=== PATIENT | female | born 2000 | race Caucasian/White ===

== ENCOUNTER 2018-05-06 19:38 | Emergency (ER) | payer OTHER ==
[2018-05-06 19:53] VITALS: BP 120/73
--- NOTE | 2018-05-06 20:09 | UC ---
Cardiac HPI - HPI Summary HPI Summary: The patient is a 17-year-old female with a three-day history of mild left superior chest pain. She denies any shortness of breath. She denies any positional component to her pain. She denies any pleuritic component to her pain. States that during the month of March she was sick with a respiratory issue that took about 4 weeks to clear up. She was on courses of antibiotics as well as some prednisone. He states the prednisone and gave her palpitations so she stopped up. Today she developed a sensation that her heart was racing and pounding stronger than normal. That prompted her to come in and get checked. - History of Current Complaint Chief Complaint: UCChestPain Stated Complaint: CHEST PAIN Time Seen by Provider: 05/06/18 20:03 Hx Obtained From: Patient Hx Last Menstrual Period: 1 week ago Onset/Duration: Gradual Onset, Lasting Days Initial Severity: Mild Current Severity: Mild Pain Intensity: 3 Chest Pain Location: Discrete at: Character: Fast, Pounding Aggravating Factor(s): Nothing Alleviating Factor(s): Nothing Associated Signs & Symptoms: Positive: Chest Pain, Palpitations - Allergy/Home Medications Allergies/Adverse Reactions: Allergies Allergy/AdvReac Type Severity Reaction Status Date / Time No Known Allergies Allergy Verified 05/06/18 19:54 Home Medications: Home Medications Cholecalciferol TAB* [Vitamin D TAB*] 1 tab PO DAILY 05/06/18 [History Confirmed 05/06/18] PMH/Surg Hx/FS Hx/Imm Hx Previously Healthy: Yes - Surgical History Surgical History: None - Family History Known Family History: Negative: Cardiac Disease, Hypertension, Diabetes - Social History Alcohol Use: Rare Substance Use Type: None Smoking Status (MU): Never Smoked Tobacco Review of Systems All Other Systems Reviewed And Are Negative: Yes Constitutional: Positive: Negative Skin: Positive: Negative Eyes: Positive: Negative ENT: Positive: Negative Respiratory: Positive: Negative Cardiovascular: Positive: Palpitations, Chest Pain Gastrointestinal: Positive: Negative Genitourinary: Positive: Negative Motor: Positive: Negative Neurovascular: Positive: Negative Musculoskeletal: Positive: Negative Neurological: Positive: Negative Psychological: Positive: Negative Physical Exam Triage Information Reviewed: Yes Appearance: Well-Appearing, No Pain Distress, Well-Nourished Vital Signs: Initial Vital Signs Temp 99.7 F 05/06/18 19:42 Pulse 89 05/06/18 19:42 Resp 16 05/06/18 19:42 BP 120/73 05/06/18 19:42 Pulse Ox 99 05/06/18 19:42 Vital Signs Reviewed: Yes Eyes: Positive: Conjunctiva Clear ENT: Positive: Hearing grossly normal, Pharynx normal Neck: Positive: Supple, Nontender, No Lymphadenopathy Respiratory: Positive: Lungs clear, Normal breath sounds, No respiratory distress, No accessory muscle use Cardiovascular: Positive: RRR, No Murmur Abdominal Exam: Normal Musculoskeletal: Positive: ROM Intact, No Edema Neurological: Positive: Alert Psychological Exam: Normal Skin Exam: Normal - Clinical Impression Provider Diagnosis: Palpitations, Atypical chest pain Discharge - Sign-Out/Discharge Documenting (check all that apply): Patient Departure All imaging exams completed and their final reports reviewed: No - Discharge Plan Condition: Stable Disposition: HOME Patient Education Materials: Chest Pain (DC), Heart Palpitations (ED) Referrals: [facility] [, APPLICATION, OTHER] - 2 Days Additional Instructions: advil or aleve heat - Billing Disposition and Condition Condition: STABLE Disposition: Home
--- NOTE | 2018-05-07 20:05 | UC ---
- Progress Note Progress Note: Radiologist reading from May 06, 2018 of chest x-ray is no acute disease process. Provider interpretation of the same date has not found on the chart. Discharge diagnoses did not indicate any structural chest pathology therefore there is no discrepancy. Course/Dx - Diagnoses Provider Diagnoses: Palpitations, Atypical chest pain Discharge - Sign-Out/Discharge Documenting (check all that apply): Patient Departure All imaging exams completed and their final reports reviewed: Yes - Discharge Plan Condition: Stable Disposition: HOME Patient Education Materials: Chest Pain (DC), Heart Palpitations (ED) [email or web address] OTHER[facility] - 2 Days Additional Instructions: advil or aleve heat - Billing Disposition and Condition Condition: STABLE Disposition: Home
== END 2018-05-06 21:00 | disposition home or self-care (01) ==
LOC: UCEAST 19:38
DX: R00.2 Palpitations (principal); R07.89 Other chest pain
CPT/HCPCS: 71046; 99201; G0463